=== PATIENT | female | born 1950 | race Caucasian/White ===

== ENCOUNTER 2017-07-07 18:20 | Inpatient (IN) | payer OTHER, BC ==
[~2017-07-07] VITALS: Ht 167.6 cm; Wt 111.0 kg
[~2017-07-07 18:20] MED LIST: ALBUTEROL1.25 MG/3 IH; CARVEDILOL6.25 MG PO; KEFLEX500 MG PO; METFORMIN HCL500 M4 PO; PRAVASTATIN SOD20 MG PO; VALACYCLOVIR1000 MG PO; VENTOLIN HFA18 GM IH; ZOFRAN4 MG PO; metformin
[2017-07-07 19:02] LABS: HEMATOCRIT 36.6 % (36.0-46.0); HEMOGLOBIN 12.5 G/DL (11.9-15.5); MCH 31.3 PG (29.0-34.0); MCHC 34.2 G/DL (30.0-36.0); MCV 91.7 FL (83-99); PLATELET COUNT 194 K/uL (156-360); RBC DIS.WIDTH-CV 13.2 % (11.8-14.6); RBC DIS.WIDTH-SD 44.9 % (39-53); RED BLOOD COUNT 3.99 M/uL (3.80-5.20); WHITE BLOOD COUNT 16.3 K/uL (4.1-10.2)
[2017-07-07 19:11] LABS: ALBUMIN 3.4 g/dL (3.2-4.8); CHLORIDE 99 mEq/L (99-109); POTASSIUM 3.5 mEq/L (3.7-5.4); SODIUM 134 mEq/L (136-147)
[2017-07-07 19:13] LABS: GLUCOSE 190 mg/dL (70-99); TOTAL PROTEIN 6.3 g/dL (6.4-8.3)
[2017-07-07 19:17] LABS: ALKALINE PHOSPHATASE 88 IU/L (3-129); CREATININE 0.8 mg/dL (0.6-1.3); GFR ESTIMATE (CALCULATED) > 59 mL/min/
[2017-07-07 19:18] LABS: UREA NITROGEN (BUN) 17 mg/dL (9-23)
[2017-07-07 19:19] LABS: AST (GOT) 12 IU/L (2-34)
[2017-07-07 19:20] LABS: ALT (GPT) 16 IU/L (3-49); LIPASE 7 U/L (1.0-51.0)
[2017-07-07 20:18] LABS: APPEARANCE CLEAR ((CLEAR)); BILIRUBIN NEGATIVE; BLOOD NEGATIVE; COLOR YELLOW ((YELLOW)); GLUCOSE (STRIP) NEGATIVE; KETONES NEGATIVE; LEUKOCYTES NEGATIVE; NITRITE NEGATIVE; PROTEIN (STRIP) NEGATIVE; SPECIFIC GRAVITY 1.021 (1.000-1.030); UCUL ADDED? NO; UROBILINOGEN 0.2 MG/DL (0.2-1.0)
[2017-07-07] MEDS ORDERED: ADVAIR 500/501 DISK IH (20:58)
[2017-07-07] MEDS ORDERED: VALSARTAN-HCTZ1 EAC3 PO (20:58)
[2017-07-07] MEDS ORDERED: PROAIR HFA8.5 GM IH (20:59)
[2017-07-07] MEDS ORDERED: ALBUTEROL2.5 MG/3 M IH (20:59)
[2017-07-07] MEDS ORDERED: PRAVACHOL10 MG PO (21:00)
[2017-07-07] MEDS ORDERED: TYLENOL EXTRA500 MG PO (21:34)
[2017-07-07] MEDS ORDERED: ADVIL,NUPRIN,M200 MG PO (21:35)
[2017-07-07 23:53] VITALS: BP 141/78
[2017-07-08 04:05] VITALS: BP 146/71
[2017-07-08 05:31] LABS: BASOPHIL (%) 0.1 % (0-1); EOSINOPHIL (%) 0 % (0-5); HEMATOCRIT 36.7 % (36.0-46.0); HEMOGLOBIN 11.9 G/DL (11.9-15.5); IMMATURE GRANULOCYTE (%) 0.6 % (0.0-0.7); LYMPHOCYTE (%) 5.3 % (15-42); LYMPHOCYTE COUNT 0.7 K/uL (1.0-2.8); MCH 30.1 PG (29.0-34.0); MCHC 32.4 G/DL (30.0-36.0); MCV 92.9 FL (83-99); MONOCYTE (%) 0.4 % (3-12); MONOCYTE COUNT 0.1 K/uL (0-0.8); NEUTROPHIL (%) 93.6 % (45-76); NEUTROPHIL COUNT 13.1 K/uL (1.8-6.4); PLATELET COUNT 204 K/uL (156-360); RBC DIS.WIDTH-CV 13.3 % (11.8-14.6); RBC DIS.WIDTH-SD 46.5 % (39-53); RED BLOOD COUNT 3.95 M/uL (3.80-5.20)
[2017-07-08 06:07] LABS: ALBUMIN 3.2 G/DL (3.2-4.8); ALKALINE PHOSPHATASE 83 IU/L (3-129); ALT (GPT) 14 IU/L (3-49); AST (GOT) 11 IU/L (2-34); CHLORIDE 102 MEQ/L (99-109); CREATININE 0.8 MG/DL (0.6-1.3); DIRECT BILIRUBIN 0.2 mg/dL (0.0-0.3); GFR ESTIMATE (CALCULATED) > 59 mL/min/; GLUCOSE 275 mg/dL (70-99); POTASSIUM 4.2 MEQ/L (3.7-5.4); SODIUM 133 MEQ/L (136-147); TOTAL BILIRUBIN 0.7 MG/DL (0.0-1.0); TOTAL PROTEIN 6.1 G/DL (6.4-8.3); UREA NITROGEN (BUN) 15 mg/dL (9-23)
[2017-07-08 07:38] VITALS: BP 110/55
[2017-07-08 12:15] VITALS: BP 112/60
[2017-07-08 17:14] VITALS: BP 118/66
[2017-07-08 19:58] VITALS: BP 126/65
[2017-07-09 00:45] VITALS: BP 120/62
[2017-07-09 04:01] VITALS: BP 115/58
[2017-07-09 05:51] LABS: HEMATOCRIT 34.4 % (36.0-46.0); HEMOGLOBIN 11.5 G/DL (11.9-15.5); MCH 31.2 PG (29.0-34.0); MCHC 33.4 G/DL (30.0-36.0); MCV 93.2 FL (83-99); PLATELET COUNT 201 K/uL (156-360); RBC DIS.WIDTH-CV 13.6 % (11.8-14.6); RBC DIS.WIDTH-SD 45.7 % (39-53); RED BLOOD COUNT 3.69 M/uL (3.80-5.20); WHITE BLOOD COUNT 12.4 K/uL (4.1-10.2)
[2017-07-09 07:40] VITALS: BP 131/68
[2017-07-09 12:12] VITALS: BP 122/88
[2017-07-09] MEDS ORDERED: LEVAQUIN750 MG PO (15:02)
[2017-07-09] MEDS ORDERED: PREDNISONE10 MG PO (15:05)
== END 2017-07-09 16:49 | disposition home or self-care (01) | DRG 871 ==
LOC: EME 18:20 → EDOF 22:27 → 5SOUTH 22:27 → ENRESERV 22:28 → 5SOUTH 23:29
PROVIDERS: Hospitalist; Physician Assistant
DX: A41.9 Sepsis, unspecified organism (principal); J15.9 Unspecified bacterial pneumonia; E78.5 Hyperlipidemia, unspecified; J45.901 Unspecified asthma with (acute) exacerbation; E66.9 Obesity, unspecified; E11.9 Type 2 diabetes mellitus without complications; E11.65 Type 2 diabetes mellitus with hyperglycemia; T38.0X5A Adverse effect of glucocorticoids and synthetic analogues, initial encounter; Y92.9 Unspecified place or not applicable
CPT/HCPCS: 71046; 80048; 80053; 80076; 81003; 82948; 83605; 83690; 85025; 85027; 87040; 87070; 87205; 87449; 93005; 94640; 94640 76; 94799; 99202; 99281; 99285; J1650; J1815; J1956; J2930; J7030; J7512